=== PATIENT | male | born 1985 | race Caucasian/White ===

== ENCOUNTER 2018-09-24 08:00 | Day surgery (SDC) | payer OTHER, SELFPAY ==
[2018-09-10 09:06] VITALS: BMI 36.1
[2018-09-24] VITALS (8 sets, daily range): BP systolic 83–142; BP diastolic 52–96; PULSE 52–78; RESP 12–16; TEMP 36.3–36.6; O2SAT 95–99; BMI 35.2
--- NOTE | 2018-09-24 | PATH_ITS ---
[facility] Accession Number: [id number] . 01 Material submitted: . thigh - LEFT THIGH MASS . 01 Clinical history: . A: LEFT THIGH MASS- PROBABLE LIPOMA . 02 Diagnosis: Mass, Left Thigh: Lipoma, negative for atypia. MRV/09/28/2018 . 02 Electronically signed: . Ronald Puri MD, Pathologist NPI- [id number] . 01 Gross description: . LEFT THIGH MASS: Received in formalin is 1 fragment of rehman soft tissue measuring 4.0 x 2.2 x 1.6 cm. Tissue is inked,. Specimen is sectioned and submitted in eligibility services representative sections in 2 cassettes. /[facility] /[facility] . 02 Pathologist provided ICD-10: D17.24 . 02 CPT . 038313 Performed at: 01 [facility] [address] [id number] MD Quinn Bhatia MD Phone: [phone] Performed at: 02 [facility] [address] [place] [id number] MD Ibeth Siegel MD Phone: [phone]
[2018-09-24] MEDS: LACTATED RINGERS 1,000 ML 100 ML IV (08:31)
--- NOTE | 2018-09-24 10:00 | PM.PREOP ---
Pre-operative Note Interval Note History & Physical reviewed/Exam performed by Physician: Yes Changes to H&P: No H&P completed within 30 days and has changed as indicated here:: Please see my office note of 09/08
[2018-09-24] MEDS: CLINDAMYCIN 900 MG/50 ML PIGGYBACK 50 MG IV (10:05)
--- NOTE | 2018-09-24 10:24 | SUR.OPER ---
Supine on padded OR bed, head on pillow, arms secured on padded arm boards at <90 degrees abduction, legs: right leg flat, secured with tape over blanket, left leg frog-legged, secured with tape over blanket, safety belt at hip.
[2018-09-24] MEDS: BUPIVACAINE 0.5% W/ EPI (PF) VIAL 30 ML INJ (10:25)
--- NOTE | 2018-09-24 11:08 | PM.OP.1 ---
Operative Date/Time/Diagnoses Date of procedure: 09/24/18 Time of procedure: 11:00 Pre-op diagnosis: Mass left thigh clinically a lipoma measuring 3 x 3 cm Post-op diagnosis: same Procedure & Clinicians Procedure: Excision mass left thigh Same procedure as scheduled: Yes Indications: Palpable mass causing symptoms Surgeon: Prashanth Dixon Click Yes if Unassisted: Yes Anesthesia Type: General Operative Notes Findings: Fatty mass left thigh Closure Type: primary Specimen(s): other (Mass) Prosthetic devices, grafts, tissues, transplants, or devices: None Estimated Blood Loss (mL): 5 Blood products transfused: none Procedure in detail: The patient was placed supine on the operating room table and underwent general LMA anesthesia. He was frog-legged. Area was prepped and draped in the usual fashion. Local anesthetic was infiltrated overlying the mass and an incision made over top of it. It was carried down the level of the mass which was located in the subcu fat. The mass was excised using sharp blunt dissection and cautery. Hemostasis was achieved with cautery. Subcu was closed with interrupted 3 0 Vicryl. The subcu was closed with interrupted 3 0 Vicryl. The skin was closed with interrupted 3 0 nylon vertical mattress sutures. Dressing was applied. Patient tolerated the procedure well Complications: none Condition: stable Disposition: PACU Plan for aftercare: Follow-up in office
[2018-09-24] MEDS: HYDROMORPHONE 2 MG INJ 0.5 MG IV ×4 (11:10→11:37)
[2018-09-24] MEDS: HYDROCODONE/ACET 5/325 TABLET 1 TAB PO (11:54)
--- NOTE | 2018-09-24 12:04 | SUR.PHASEII ---
surgical drsg observed to be c/d/i. bed in lowest position, call light given to pt. pt appears comfortable at this time.
== END 2018-09-24 12:32 | disposition home or self-care (01) ==
PROVIDERS: PCP Physician Assistant; Visit Provider Specialist
PROC: (CPT 27337; principal; 2018-09-24 09:15)
DX: D17.24 Benign lipomatous neoplasm of skin and subcutaneous tissue of left leg (principal); F17.210 Nicotine dependence, cigarettes, uncomplicated
CPT/HCPCS: 27337; 88304; J1100; J1170; J2405; J2704; J3010